=== PATIENT | female | born 2000 | race Caucasian/White ===

== ENCOUNTER → 2020-01-09 | Outpatient (CLI) | payer BC ==
[2020-01-09 11:05] LABS: EOS # 0.1 (0.04-0.40); EOS % 0.8 % (0.1-4.0); HEMATOCRIT 42.7 % (35.0-45.0); HEMOGLOBIN 14.2 g/dL (12.0-15.0); LYMPH# 2.2 (1.20-3.40); MEAN CELL VOLUME 94 fl (78-95); MEAN CORPUSCULAR HEMOGLOBIN 31 pg (26-32); MEAN CORPUSCULAR HGB CONC 33 g/dL (33-37); MEAN PLATELET VOLUME 8.3 fl (7.4-10.4); MONO # 0.9 (0.10-0.60); NEU # 4.8 (1.40-6.50); PLATELET COUNT 335 K/mm3 (130-400); RED BLOOD COUNT 4.55 M/mm3 (4.10-5.30); RED CELL DISTRIBUTION WIDTH 11.5 % (11.5-14.5)
[2020-01-09 11:33] LABS: POTASSIUM 4.1 mmol/L (3.5-5.1)
[2020-01-09 11:34] LABS: ALBUMIN 4.2 g/dL (3.5-5.0)
[2020-01-09 11:35] LABS: CALCIUM 9.4 mg/dL (8.3-10.5)
[2020-01-09 11:36] LABS: TOTAL PROTEIN 7.3 g/dL (6.4-8.3)
[2020-01-09 11:38] LABS: TOTAL BILIRUBIN 0.5 mg/dL (0.2-1.2)
== END ==
LOC: LAB 10:52
PROVIDERS: Physician Assistant
DX: Z00.00 Encounter for general adult medical examination without abnormal findings (principal); E16.2 Hypoglycemia, unspecified; Z83.3 Family history of diabetes mellitus

== ENCOUNTER → 2020-09-11 | Outpatient (CLI) | payer BC | LOC: LAB 08:58 | DX: R11.0 Nausea (principal); R51.9 Headache, unspecified; R53.83 Other fatigue; Z20.828 Contact with and (suspected) exposure to other viral communicable diseases ==

== ENCOUNTER → 2020-10-03 | Outpatient (CLI) | payer BC | LOC: LAB 16:13 | DX: R05 Cough (principal); Z20.822 Contact with and (suspected) exposure to COVID-19 ==